=== PATIENT | female | born 1955 | race Caucasian/White ===

== ENCOUNTER → 2017-01-09 | Outpatient (CLI) | payer OTHER ==
[~2017-01-09] MED LIST: CALICUM 500+D1 EACH PO; CENTRUM SILVER1 EAC4 PO; IRON325 PO; PLAVIX 75 MG TA75 M1 PO
== END ==
LOC: MRI 06:52
DX: Z80.0 Family history of malignant neoplasm of digestive organs (principal)

== ENCOUNTER → 2018-03-19 | Outpatient (CLI) | payer OTHER | LOC: NUC 09:38 | DX: M81.0 Age-related osteoporosis without current pathological fracture (principal); M85.89 Other specified disorders of bone density and structure, multiple sites; Z78.0 Asymptomatic menopausal state ==

== ENCOUNTER → 2019-02-25 | Outpatient (CLI) | payer OTHER ==
--- NOTE | ~2019-02-25 | PFR/MVV ---
[facility] [place] [address] PULMONARY FUNCTION MVV/REPORT Name: LYNN DEAN Room #: [facility]#: [id number] ������������������ Admission: 02/25/19 ������������������ Attend Phys: Jerrell Esteban MD Discharge: ������������������ Date of : 59 Report #: [id number] THIS REPORT FOR: //name// >> SPIROMETRY: (BTPS) Height: in cm Weight: lbs kg Exam Date: PRE-RX POST-RX PRED BEST %PRED BEST %PRED %CHG FVC LITERS . . . . . . FEV1 LITERS . . . . . . FEV1/FVC % . . . . . . IEV27-19% L/Sec . . . . . . PEF L/SEC . . . . . . FEF50/FIF50 UNITLESS . . . . . . MVV L/Min . . . f 1/Min . . . >> LUNG VOLUMES: (BTPS) PRE-RX POST-RX PRED AVG %PRED AVG %PRED %CHG VC Liters . . . . . . TLC Liters . . . . . . RV Liters . . . . . . RV/TLC % . . . . . . FRC PL Liters . . . . . . FRC N2 Liters . . . . . . ERV Liters . . . . . . IC Liters . . . . . . >> DIFFUSION: DLCO ml/Min/mmHg . . . . . . DL Marbin ml/Min/mmHg . . . . . . DLCO/VA ml/Min/mmHg . . . . . . VA Liters . . . . . . COMMENTS: COMMENTS: >> RESISTANCE: [facility] [address] [place] [address] PULMONARY FUNCTION MVV/REPORT Name: LYNN DEAN Room #: [facility]#: [id number] ������������������ Admission: 02/25/19 ������������������ Attend Phys: Jerrell Esteban MD Discharge: ������������������ Date of : 59 Report #: [id number] PRE-RX PRED AVG %PRED Raw Total cmH20/L/Sec . . . Raw Insp cmH20/L/Sec . . . Raw Exp cmH20/L/Sec . . . Raw cmH20/L/Sec . . . Gaw L/Sec/cmH20 . . . sRaw cmH20 Sec . . . sGaw l/cmH20 Sec . . . Vtq Liters . . . # = OUTSIDE 95% CONFIDENCE INTERVAL CALIBRATION: PRED: 3.00 ACTUAL: EXP 3.01 INSP 3.02 [facility]-[id number] [facility]- [id number] >> INTERPRETATION/IMPRESSION: CC: Jerrell Esteban PRIMARY PHYSICIAN: Dr. Esteban. SPIROMETRY: FEV1 is 1.785 liters (78%), FVC is 3.02 liters (99%), FEV1/FVC ratio is 58%. Postbronchodilator therapy with no significant response. Total lung volumes, TLC is 5.12 liters (105%), vital capacity is 3.02 liters (99%), IC to ERV ratio is normal. Diffusing capacity is 51%. IMPRESSION: Pulmonary function studies are consistent with a mild obstructive airflow defect with no air trapping nor hyperinflation. Diffusing capacity is moderately decreased. ��������������������������������������������� ���������������������������������������� By: ��������������������������������������������� Dioni Bolanos MD /nt
== END ==
LOC: PUL 09:57
DX: R06.00 Dyspnea, unspecified (principal)

== ENCOUNTER → 2020-12-12 | Outpatient (CLI) | payer OTHER | LOC: ULTRA 12:26 | PROVIDERS: ATTEND Nurse Practitioner | DX: R31.9 Hematuria, unspecified (principal); I86.8 Varicose veins of other specified sites ==